=== PATIENT | male | born 1955 | race Caucasian/White ===

== ENCOUNTER 2019-02-06 14:41 | Emergency (ER) | payer SELFPAY ==
[2019-02-06 14:46] VITALS: BMI 33.2
[2019-02-06 14:55] VITALS: TEMP 97.2
--- NOTE | 2019-02-06 15:16 | ED PDOC ---
Arrival/HPI - General Chief Complaint: Altered Mental Status Time Seen by Provider: 02/06/19 14:48 Historian: Patient - History of Present Illness Narrative History of Present Illness (Text): 02/06/19 15:13 A 63 year old male, whose past medical history includes diabetes mellitus, presents to the emergency department for evaluation of public intoxication. Patient was found in a hallway of the hospital building and was found by a bystander who called EMS. Patient admits to ingesting marijuana cookies and denies any other drugs. Patient this is his first time experiencing these symptoms. Patient denies any nausea, vomiting, or any other complaints. Time/Duration: Other (earlier today) Symptom Onset: Gradual Activities at Onset: Light Context: Other (hospital hallway) Past Medical History - Provider Review Nursing Documentation Reviewed: Yes - Infectious Disease Hx of Infectious Diseases: None - Endocrine/Metabolic Hx Diabetes Mellitus Type 2: Yes - Psychiatric Hx Substance Use: Yes Family/Social History - Physician Review Nursing Documentation Reviewed: Yes Family/Social History: No Known Family HX Smoking Status: Current Some Days Smoker Hx Alcohol Use: No Hx Substance Use: Yes Substance used: marijuanna Allergies/Home Meds Allergies/Adverse Reactions: Allergies No Known Allergies Allergy (Verified 02/06/19 14:46) Review of Systems - Physician Review All systems were reviewed & negative as marked: Yes - Review of Systems Gastrointestinal: absent: Nausea, Vomiting Physical Exam - Physical Exam Narrative Physical Exam (Text): 02/06/19 15:16 Gen: VS reviewed, alert, well developed, well nourished, nontoxic, mild distress, drowsy. ENT: normal pharynx. Eye: EOMI, PERRL. Neck: no JVD, supple, no adenopathy. CV: regular rate, regular rhythm, no rubs, no murmur, no gallops, S1, S2, pulses equal and strong. Pulm: no distress, clear to auscultation, no wheeze, no rhonchi, breath sounds equal, no rales. Abd: soft, nontender, no guarding, no rebound, no rigidity, normal bowel sounds. Ext: no edema. Skin: good color, no rash, no cyanosis. Psych: responds appropriately to questions, normal affect. Neuro: oriented x 3, CN2-12 intact grossly, motor intact, sensation intact. Vital Signs Reviewed: Yes Vital Signs Temp Pulse Resp BP Pulse Ox 02/06/19 14:41 97.2 F L 86 20 87/47 L 99 Temperature: Hypothermic Blood Pressure: Hypotensive Pulse: Regular Respiratory Rate: Normal Finger Stick Blood Glucose: 330 Medical Decision Making ED Course and Treatment: 02/06/19 15:17 Impression: 63 year old male presenting to the emergency room for evaluation of public intoxication. Plan: -- VBG -- EKG -- Labs -- CBC -- Chest X-ray -- Reassess and disposition Prior Visits: Notes and results from previous visits were reviewed. Progress Notes: 02/06/19 20:36 patient has been evaluated multiple times at bedside and has become more sober during ED course. as of 20:33 patient is awake and alert and following commands. the lactic acidosis has resolved but unlikely elevated second to an infectious source. will continue to monitor to full sobriety. 02/06/19 08:[address] thomas, pending clinical reassessment and final disposition - RAD Interpretation Narrative RAD Interpretations (Text): 02/06/19 15:54 Dictator: Ciera Ortiz Procedure: Chest X-ray Impression: No focal consolidation. Radiology Orders: 02/06/19 15:13 CHEST PORTABLE [RAD] Stat Cable Engineer: Radiologist - EKG Interpretation EKG Interpretation (Text): 02/06/19 18:10 EKG: Ordered, reviewed, and independently interpreted the EKG. Rate : 83 BPM Rhythm : NSR Interpretation : No QRS, LAFB, no acute ST-T wave abnormality. Interpreted by ED Physician: Yes - Scribe Statement The provider has reviewed the documentation as recorded by the Nnamdi Christensen All medical record entries made by the Scribe were at my direction and personally dictated by me. I have reviewed the chart and agree that the record accurately reflects my personal performance of the history, physical exam, medical decision making, and the department course for this patient. I have also personally directed, reviewed, and agree with the discharge instructions and disposition. Disposition/Present on Arrival - Present on Arrival Any Indicators Present on Arrival: No History of DVT/PE: No History of Uncontrolled Diabetes: No Urinary Catheter: No History of Decub. Ulcer: No History Surgical Site Infection Following: None - Disposition Have Diagnosis and Disposition been Completed?: Yes Diagnosis: Accidental cannabis poisoning Disposition: HOME/ ROUTINE Disposition Time: 08:59 (not actual) Condition: GOOD Discharge Instructions (ExitCare): Marijuana Use and Addiction Additional Instructions: Avoisd marijuana use/follow up with your doctor. Forms: [employer] (Spanish)
[2019-02-06] MEDS ORDERED: Sodium Chloride 0.9% 1,000 ML IV STA ×2 (15:18→15:44)
[2019-02-06 15:25] LABS: BASO # 0.02 K/mm3 (0.0-2.0); BASO % 0.2 % (0.0-3.0); EOS # 0.1 (0.0-0.7); EOS % 0.6 % (1.5-5.0); HEMOGLOBIN 12.3 g/dL (14.0-18.0); LYMPH # 1.3 (1.2-3.4); LYMPH % 15.6 % (22.0-35.0); MEAN CELL VOLUME 97.1 fl (80.0-105.0); MEAN CORPUSCULAR HEMOGLOBIN 31.9 pg (25.0-35.0); MEAN CORPUSCULAR HGB CONC 32.9 g/dl (31.0-37.0); MEAN PLATELET VOLUME 11.5 fl (7.0-11.0); MONO # 0.6 (0.1-0.6); MONO % 7.6 % (1.0-6.0); RBC 3.85 10^6/uL (3.5-6.1); RED CELL DISTRIBUTION WIDTH 13.9 % (11.5-14.5); WHITE BLOOD COUNT 8.3 10^3/uL (4.5-11.0)
[2019-02-06 15:43] LABS: VENOUS BLOOD GAS BASE EXCESS -0.3 mmol/L (0.0-2.0); VENOUS BLOOD GAS PO2 39 mm/Hg (30-55)
[2019-02-06 15:45] LABS: BARBITURATES, UR NEGATIVE (NEGATIVE); BENZODIAZEPINES, UR NEGATIVE (NEGATIVE); OPIATES, UR NEGATIVE (NEGATIVE); PHENCYCLIDINE, UR NEGATIVE (NEGATIVE)
[2019-02-06 15:46] LABS: ALB/GLOB RATIO 1.1 (1.1-1.8); ALBUMIN 3.8 g/dL (3.0-4.8); ALT/SGPT 11 U/L (7-56); AST/SGOT 20 U/L (17-59); BLOOD UREA NITROGEN 18 mg/dL (7-21); CALCIUM 8.9 mg/dL (8.4-10.5); GFR NON-AFRICAN AMERICAN > 60
--- NOTE | 2019-02-06 15:52 | RAD ---
HISTORY: aspiration COMPARISON: None available. TECHNIQUE: Chest, one view. FINDINGS: Examination limited by habitus and hypoinflation. LUNGS: No focal consolidation. Please note that chest x-ray has limited sensitivity for the detection of pulmonary masses. PLEURA: No significant pleural effusion identified. No definite pneumothorax . CARDIOVASCULAR: Borderline cardiomegaly. Atherosclerotic calcifications present. OSSEOUS STRUCTURES: Degenerative changes. VISUALIZED UPPER ABDOMEN: Elevation of the right hemidiaphragm. OTHER FINDINGS: None. IMPRESSION: No focal consolidation.
[2019-02-06] MEDS ORDERED: Insulin Regular 1 UNITS/0.01 ML ML IVP STA (16:22)
--- NOTE | 2019-02-06 18:36 | CT ---
Date of service: 02/06/2019 PROCEDURE: CT HEAD WITHOUT CONTRAST. HISTORY: altered mentation COMPARISON: None available. TECHNIQUE: Axial computed tomography images were obtained through the head/brain without intravenous contrast. Supplemental Coronal and Sagittal projections created and reviewed. Radiation dose: Total exam DLP = 938.31 mGy-cm. This CT exam was performed using one or more of the following dose reduction techniques: Automated exposure control, adjustment of the mA and/or kV according to patient size, and/or use of iterative reconstruction technique. FINDINGS: HEMORRHAGE: No intracranial hemorrhage. BRAIN: No mass effect or edema. No atrophy or chronic microvascular ischemic changes. VENTRICLES: Unremarkable. No hydrocephalus. CALVARIUM: Unremarkable. PARANASAL SINUSES: Unremarkable as visualized. No significant inflammatory changes. MASTOID AIR CELLS: Unremarkable as visualized. No inflammatory changes. OTHER FINDINGS: None. IMPRESSION: No acute intracranial abnormalities. No significant findings to account for the clinical presentation.
[2019-02-06 19:04] VITALS: BP 95/63; PULSE 73; RESP 15; O2SAT 97
[2019-02-06 19:04] LABS: VENOUS BLOOD GAS BASE EXCESS -0.6 mmol/L (0.0-2.0); VENOUS BLOOD GAS PO2 33 mm/Hg (30-55); VENOUS BLOOD PH 7.25 (7.32-7.43)
--- NOTE | 2019-02-06 20:37 | CARD ---
APPROVED REPORT Date of service: 02/06/2019 EKG Measurement Heart [id number] <Conclusion> Normal sinus rhythm RSR' or QR pattern in V1 suggests right ventricular conduction delay Left anterior fascicular block Minimal voltage criteria for LVH, may be normal variant
--- NOTE | 2019-02-06 21:14 | ED PDOC ---
Physical Exam Vital Signs Temp Pulse Resp BP Pulse Ox 02/06/19 19:02 73 15 95/63 L 97 02/06/19 18:36 75 18 110/74 99 02/06/19 17:49 75 15 107/68 97 02/06/19 16:44 77 14 107/63 95 02/06/19 16:00 80 16 106/73 96 02/06/19 15:45 80 16 100/71 97 02/06/19 14:41 97.2 F L 86 20 87/47 L 99 Finger Stick Blood Glucose: 330 Medical Decision Making ED Course and Treatment: 02/06/19 21:00 Case endorsed to me by Dr. Dihn, pending sobriety final disposition. Pt, whose past medical history includes diabetes, presented after ingesting marijuana-laced cookies.. 02/06/19 21:15 On re-evaluation, pt is awake, alert, and in no acute distress. Ambulating with steady gait, denies any complaints, clinically sober. Pt stable for d/c. - Lab Interpretations Lab Results: pO2 33 mm/Hg (30-55) 02/06/19 16:58 VBG pH 7.25 (7.32-7.43) L 02/06/19 16:58 VBG pCO2 64.0 (40-60) H 02/06/19 16:58 VBG HCO3 28.1 mmol/l (21-28) H 02/06/19 16:58 VBG Total CO2 30.1 mmol.L (22-28) H 02/06/19 16:58 VBG O2 Sat (Calc) 62.6 % (40-65) 02/06/19 16:58 VBG Base Excess -0.6 mmol/L (0.0-2.0) L 02/06/19 16:58 VBG Potassium 4.5 mmol/L (3.6-5.2) 02/06/19 16:58 Sodium 142.0 mmol/L (132-148) 02/06/19 16:58 Chloride 109.0 mmol/L (98-107) H 02/06/19 16:58 Glucose 221 mg/dl (75-110) H 02/06/19 16:58 Lactate 1.8 mmol/L (0.7-2.1) 02/06/19 16:58 FiO2 21.0 % 02/06/19 16:58 Crit Value Called To Herlinda goodwin 02/06/19 15:35 Crit Value Called By Leia 02/06/19 15:35 Blood Gas Notified Time 1542 02/06/19 15:35 Total Bilirubin 0.5 mg/dL (0.2-1.3) 02/06/19 15:00 AST 20 U/L (17-59) 02/06/19 15:00 ALT 11 U/L (7-56) 02/06/19 15:00 Alkaline Phosphatase 106 U/L (38-126) 02/06/19 15:00 Total Protein 7.3 g/dL (5.8-8.3) 02/06/19 15:00 Albumin 3.8 g/dL (3.0-4.8) 02/06/19 15:00 Globulin 3.5 gm/dL 02/06/19 15:00 Albumin/Globulin Ratio 1.1 (1.1-1.8) 02/06/19 15:00 - RAD Interpretation Radiology Orders: 02/06/19 15:13 CHEST PORTABLE [RAD] Stat 02/06/19 16:50 HEAD W/O CONTRAST [CT] Stat - Medication Orders Current Medication Orders: Discontinued Medications Sodium Chloride (Sodium Chloride 0.9%) 1,000 mls @ 999 mls/hr IV .Q1H1M STA Stop: 02/06/19 16:18 Last Admin: 02/06/19 15:48 Dose: 999 mls/hr eMAR Start Stop Document 02/06/19 15:48 CD (Rec: 02/06/19 15:48 CD [id number] Intravenous Solution Start Date 02/06/19 Start Time 15:48 End Date 02/06/19 End time 16:49 Total Infusion Time 61 Sodium Chloride (Sodium Chloride 0.9%) 1,000 mls @ 999 mls/hr IV .Q1H1M STA Stop: 02/06/19 16:44 Last Admin: 02/06/19 16:09 Dose: 999 mls/hr eMAR Start Stop Document 02/06/19 16:09 SRE (Rec: 02/06/19 16:10 SRE [id number]) Intravenous Solution Start Date 02/06/19 Start Time 16:00 End Date 02/06/19 End time 17:00 Total Infusion Time 60 Insulin Human Regular (Humulin R) 4 units IVP STAT STA Stop: 02/06/19 16:23 Last Admin: 02/06/19 16:35 Dose: 4 unit MAR Blood Glucose Document 02/06/19 16:35 CD (Rec: 02/06/19 16:35 CD [id number] Blood Glucose Finger Stick Blood Glucose (70-120) 304 IVP Administration Document 02/06/19 16:35 CD (Rec: 02/06/19 16:35 CD [id number] Charges for Administration # of IVP Administrations 1 Disposition/Present on Arrival - Present on Arrival Any Indicators Present on Arrival: No History of DVT/PE: No History of Uncontrolled Diabetes: No Urinary Catheter: No History of Decub. Ulcer: No History Surgical Site Infection Following: None - Disposition Have Diagnosis and Disposition been Completed?: Yes Diagnosis: Accidental cannabis poisoning Disposition: HOME/ ROUTINE Disposition Time: 21:18 Patient Plan: Discharge Patient Problems: Current Active Problems Problem Status Onset Accidental cannabis poisoning Acute Condition: GOOD Discharge Instructions (ExitCare): Marijuana Use and Addiction Additional Instructions: Avoisd marijuana use/follow up with your doctor. Forms: [employer] (Indian)
== END 2019-02-06 21:30 | disposition home or self-care (01) ==
LOC: ED 14:41
DX: T40.7X1A Poisoning by cannabis (derivatives), accidental (unintentional), initial encounter (principal); Y92.9 Unspecified place or not applicable; E11.9 Type 2 diabetes mellitus without complications
CPT/HCPCS: 70450; 71045; 80053; 82803; 82948; 85025; 93005; 96361; 96374; 99285; G0480; J7030